=== PATIENT | female | born 1955 ===

== ENCOUNTER 2018-09-26 11:15 | Inpatient (IN) | payer OTHER ==
[~2018-09-26] VITALS: Ht 162.6 cm; Wt 78.0 kg
[2018-09-26] MEDS ORDERED: COZAAR100 MG (13:40)
[2018-09-26] MEDS ORDERED: NORVASC5 MG (13:42)
== END 2018-10-06 18:20 | disposition home or self-care (01) | DRG 331 ==
LOC: O/R 11:15 → SURH 10-01 10:01 → O/R 10-01 10:01 → SURH 10-01 20:43
PROVIDERS: ADMIT Colon & Rectal Surgery
PROC: 0D1B4Z4 Bypass Ileum to Cutaneous, Percutaneous Endoscopic Approach (ICD-10-PCS; 2018-10-01)
PROC: 07TC4ZZ Resection of Pelvis Lymphatic, Percutaneous Endoscopic Approach (ICD-10-PCS; 2018-10-01)
PROC: 0DJD8ZZ Inspection of Lower Intestinal Tract, Via Natural or Artificial Opening Endoscopic (ICD-10-PCS; 2018-10-01)
PROC: 0DTP4ZZ Resection of Rectum, Percutaneous Endoscopic Approach (ICD-10-PCS; principal; 2018-10-01 09:30)
DX: C20 Malignant neoplasm of rectum (principal); R59.0 Localized enlarged lymph nodes; I10 Essential (primary) hypertension

== ENCOUNTER 2019-01-05 13:45 | Inpatient (IN) | payer OTHER ==
[~2019-01-05] VITALS: Ht 160 cm; Wt 72.6 kg
[~2019-01-05 13:45] MED LIST: COZAAR100 MG PO; NORVASC5 MG
[2019-01-05] MEDS ORDERED: OMEPRAZOLE40 MG PO (16:05)
== END 2019-01-09 18:38 | disposition home or self-care (01) | DRG 330 ==
LOC: SURH 01-07 08:30 → SURG 01-07 09:58 → O/R 01-07 09:58 → SURH 01-07 13:45 → SURG 01-07 15:23
PROVIDERS: ADMIT Colon & Rectal Surgery
PROC: 0DQB4ZZ Repair Ileum, Percutaneous Endoscopic Approach (ICD-10-PCS; principal; 2019-01-07 08:30)
DX: Z43.2 Encounter for attention to ileostomy (principal); C20 Malignant neoplasm of rectum; K66.0 Peritoneal adhesions (postprocedural) (postinfection); I11.9 Hypertensive heart disease without heart failure

== ENCOUNTER 2020-07-29 06:45 | Day surgery (SDC) | payer OTHER ==
[~2020-07-29 06:45] MED LIST changes: +OMEPRAZOLE40 MG PO
== END 2020-07-29 12:00 | disposition home or self-care (01) ==
LOC: AMB-ENDOS 06:45
PROVIDERS: ATTEND Colon & Rectal Surgery
DX: K63.5 Polyp of colon (principal); Z20.828 Contact with and (suspected) exposure to other viral communicable diseases